=== PATIENT | female | born 1965 | race Caucasian/White ===

== ENCOUNTER 2017-04-07 12:17 | Outpatient (CLI) | payer BC ==
[2014-05-15 10:27] VITALS: BMI 29.3
[~2017-04-07 12:17] MED LIST: BAYER CHEWABLE81 MG PO; BUMEX 1 MG TAB1 MG PO; BYSTOLIC20 MG PO; HYOMAX; K-DUR20 MEQ; NUCYNTA75 MG PO; PRILOSEC20 MG PO; [UNRECOGNIZED DRUG - OTHER] PO
== END 2017-04-07 23:59 | disposition home or self-care (01) ==
LOC: D.MAMMO 12:17
DX: Z12.31 Encounter for screening mammogram for malignant neoplasm of breast (principal)

== ENCOUNTER → 2018-04-26 23:46 | Outpatient (CLI) | payer BC ==
[2014-05-15 10:27] VITALS: BMI 29.3
== END | disposition home or self-care (01) ==
LOC: D.MAMMO 11:15
DX: Z12.31 Encounter for screening mammogram for malignant neoplasm of breast (principal)

== ENCOUNTER 2019-04-26 19:00 | Outpatient (CLI) | payer BC ==
[2014-05-15 10:27] VITALS: BMI 29.3
== END 2019-04-26 23:59 | disposition home or self-care (01) ==
LOC: D.MAMMO 19:00
PROVIDERS: ATTEND Family Medicine
DX: Z12.31 Encounter for screening mammogram for malignant neoplasm of breast (principal)

== ENCOUNTER → 2019-08-04 07:48 | Outpatient (CLI) | payer BC ==
[2014-05-15 10:27] VITALS: BMI 29.3
== END | disposition home or self-care (01) ==
LOC: D.US 07:48
PROVIDERS: ATTEND Family Medicine
DX: R94.5 Abnormal results of liver function studies (principal)

== ENCOUNTER → 2019-12-18 08:22 | Outpatient (CLI) | payer BC ==
[2014-05-15 10:27] VITALS: BMI 29.3
[~2019-12-18 08:22] MED LIST changes: +ALDACTONE25 MG PO; +CARAFATE1 G PO; +CELEXA20 MG PO; +ED-SPAZ0.125 MG PO; +GABAPENTIN300 MG PO; +NEXIUM20 MG PO; +PEPCID AC20 MG PO; +PLAVIX75 MG PO; +TRAZODONE HCL150 MG PO; +ZIAC 10-6.25 MG1 TAB PO; +ZYLOPRIM300 MG PO
--- NOTE | 2019-12-21 12:54 | ST ---
PATIENT:DIVYA MORAN MEDICAL RECORD: [id number] SEX: F LOCATION:[facility] ORDER #: ADMISSION DATE: 12/18/19 AGE OF PATIENT: 54 REFERRING PHYSICIAN: INTERPRETING PHYSICIAN: BRICE PACK MD DATE OF SERVICE: 12/18/2019 PROCEDURE: Nuclear stress test. INDICATION: Angina and coronary artery disease and hypertension. She was exercised on standard Lexiscan protocol with 33 mCi of sestamibi injected at peak stress, 11 mCi used previously for rest images. FINDINGS: Gated SPECT reveals preserved ejection fraction at 74% with good wall motioning and thickening and brightening throughout all segments. SPECT imaging Cardiolite was used as myocardial perfusion agent. There is reversible ischemia anteriorly, apically, and laterally. The anterior defect is with basal, mid and apical anterior segments as well as the apex itself. There is moderate reversibility. There is moderate sized defect. The lateral defect is apical lateral, mid lateral, basal lateral. The degree of reversibility is mild. The amount of myocardium involved between these two defects is large. OVERALL IMPRESSION: This is high risk abnormal nuclear stress test, large area of reversible ischemia anteriorly, apically, and laterally, possibly suggestive of multivessel coronary artery disease. TRANSINT:[id number] Voice Confirmation ID: [id number] DOCUMENT ID: [id number] BRICE PACK MD at 1254 CC: [id number] DICTATION DATE: 12/19/19 1226 [employer] COOK: 12/20/19 0410 DEP CLI 12/18/[address] [id number]
[2019-12-22 10:19] VITALS: BMI 33.7
== END | disposition home or self-care (01) ==
LOC: D.HCCARDIO 08:22
PROVIDERS: ATTEND Internal Medicine Interventional Cardiology
DX: I20.9 Angina pectoris, unspecified (principal)

== ENCOUNTER 2020-04-29 19:00 | Outpatient (CLI) | payer BC ==
[2019-12-22 10:19] VITALS: BMI 33.7
== END 2020-04-29 23:59 | disposition home or self-care (01) ==
LOC: D.MAMMO 19:00
PROVIDERS: ATTEND Nurse Practitioner Family
DX: Z12.31 Encounter for screening mammogram for malignant neoplasm of breast (principal)

== ENCOUNTER 2021-04-30 08:00 | Outpatient (CLI) | payer BC ==
[2019-12-22 10:19] VITALS: BMI 33.7
== END 2021-04-30 08:01 | disposition home or self-care (01) ==
LOC: D.MAMMO 08:00
PROVIDERS: ATTEND Family Medicine
DX: Z12.31 Encounter for screening mammogram for malignant neoplasm of breast (principal)

== ENCOUNTER → 2021-05-02 09:57 | Outpatient (CLI) | payer BC ==
[2019-12-22 10:19] VITALS: BMI 33.7
== END | disposition home or self-care (01) ==
LOC: D.US 09:30
PROVIDERS: ATTEND Family Medicine
DX: R92.8 Other abnormal and inconclusive findings on diagnostic imaging of breast (principal)